=== PATIENT | male | born 1995 | race Caucasian/White ===

== ENCOUNTER 2019-09-12 15:14 | Emergency (ER) | payer OTHER ==
[~2019-09-12] VITALS: Ht 170.2 cm; Wt 63.5 kg
[2019-09-12 15:18] VITALS: BP 103/64
--- NOTE | 2019-09-12 15:45 | NUR ---
PT STATES HE IS COMING IN FOR A MEDICAL EVALUATION AND CLEARANCE BECAUSE HIS FAMILY KEEPS TELLING HIM THAT HE IS ACTING PARANOID AND THEY WANT HIM TO GET EVALUATED. PT ADMITS TO RECENT METH USE 2 DAYS AGO AND ON & OFF FOR THE LAST 5 MONTHS, BUT STATES HE IS NOT FEELING PARANOID. PT STATES HE FEELS ANXIOUS AND WORRIED BECAUSE HE IS NOT ABLE TO WORK AT THIS TIME DUE TO HIS JOB BEING TEMPORARILY ON HOLD. DENIES SI/HI/DEPRESSION. PT SITTING IN CHAIR AT BEDSIDE.
--- NOTE | 2019-09-12 15:50 | NUR ---
DR. SAMI ALFONSO AT BEDSIDE.
--- NOTE | 2019-09-12 16:13 | NUR ---
Patient discharged with v/s stable. Written and verbal after care instructions given and explained. Patient verbalized understanding. Ambulatory with steady gait. All questions addressed prior to discharge. Advised to follow up with PMD.
== END 2019-09-12 16:13 | disposition home or self-care (01) ==
LOC: MED 15:14
DX: F19.10 Other psychoactive substance abuse, uncomplicated (principal); F12.10 Cannabis abuse, uncomplicated; F15.10 Other stimulant abuse, uncomplicated; F17.200 Nicotine dependence, unspecified, uncomplicated
CPT/HCPCS: 99281

== ENCOUNTER 2019-12-08 20:40 | Emergency (ER) | payer OTHER ==
[~2019-12-08] VITALS: Ht 170.2 cm; Wt 60.8 kg
[2019-12-08 20:55] VITALS: BP 108/77
--- NOTE | 2019-12-08 20:58 | NUR ---
PT TO A/W IN TENT FOR MEDICAL EVAULATION. PT WEARING MASK
--- NOTE | 2019-12-08 21:10 | NUR ---
PT SEEN IN TENT BY SINAI RODRIGUEZ
--- NOTE | 2019-12-08 21:25 | NUR ---
COVID SWAB COLLECTED
== END 2019-12-08 21:27 | disposition home or self-care (01) ==
LOC: MED 20:40
DX: B34.9 Viral infection, unspecified (principal); Z20.828 Contact with and (suspected) exposure to other viral communicable diseases
CPT/HCPCS: 99283; U0003